=== PATIENT | male | born 1975 ===

== ENCOUNTER 2016-06-30 13:57 | Emergency (ER) | payer BC ==
[2016-06-30 14:14] VITALS: BP 141/83
--- NOTE | 2016-06-30 14:32 | UC ---
Skin Complaint HPI - HPI Summary HPI Summary: 40 y/o male c/o a swollen mass located on the left jaw. Patient states the area feels similar to a recent abscess diagnosed on his right neck two weeks ago. Patient nicked his chin shaving 2 days ago, area has became inflammed, has been increasing in his over the past two days. Area is tender to touch. - History of Current Complaint Chief Complaint: [facility] Time Seen by Provider: 06/30/16 14:18 Stated Complaint: CYST ON FACE Hx Obtained From: Patient Onset/Duration: Gradual Onset Onset Severity: Mild Current Severity: Moderate Location: Discrete Aggravating: Nothing Alleviating: Nothing Associated Signs & Symptoms: Positive: Negative. Negative: Difficulty Breathing , Fever, Chills - Allergy/Home Medications Allergies/Adverse Reactions: Allergies Allergy/AdvReac Type Severity Reaction Status Date / Time No Known Allergies Allergy Verified 06/30/16 14:14 Review of Systems Constitutional: Negative Skin: Other - Cyst located on the left lower jaw Eyes: Negative ENT: Negative Respiratory: Negative Cardiovascular: Negative Gastrointestinal: Negative Genitourinary: Negative Motor: Negative Neurovascular: Negative Musculoskeletal: Negative Neurological: Negative Psychological: Negative All Other Systems Reviewed And Are Negative: Yes PMH/Surg Hx/FS Hx/Imm Hx Previously Healthy: Yes Endocrine History Of: Denies: Diabetes, Thyroid Disease Cardiovascular History Of: Denies: Cardiac Disorders, Hypertension Respiratory History Of: Denies: COPD, Asthma GI/ History Of: Denies: Ulcer Neurological History Of: Denies: TIA, CVA, Dementia, Seizures, Migraine Psychological History Of: Denies: Anxiety, Depression, Bipolar Disorder, Schizophrenia, Post Traumatic Stress Disorder - Surgical History Surgical History: Yes Surgery Procedure, Year, and Place: wisdom teeth extraction - Family History Known Family History: Positive: None - Social History Occupation: Employed Full-time Alcohol Use: None Substance Use Type: None Smoking Status (MU): Never Smoked Tobacco Have You Smoked in the Last Year: No Physical Exam Triage Information Reviewed: Yes Appearance: Well-Appearing, No Pain Distress Vital Signs: Initial Vital Signs Temp 98.1 F 06/30/16 14:10 Pulse 94 06/30/16 14:10 Resp 18 06/30/16 14:10 BP 141/83 06/30/16 14:10 Pulse Ox 100 06/30/16 14:10 Vital Signs Reviewed: Yes Eye Exam: Normal Eyes: Positive: Conjunctiva Clear ENT Exam: Normal ENT: Positive: Normal ENT inspection, Hearing grossly normal, Pharynx normal, Pharyngeal erythema, TMs normal Dental Exam: Normal Neck exam: Normal Neck: Positive: Supple, Nontender, No Lymphadenopathy Respiratory Exam: Normal Respiratory: Positive: Chest non-tender, Lungs clear, Normal breath sounds, No respiratory distress, No accessory muscle use Cardiovascular Exam: Normal Cardiovascular: Positive: RRR, No Murmur, Pulses Normal Abdominal Exam: Normal Abdomen Description: Positive: Nontender, No Organomegaly, Soft Bowel Sounds: Positive: Present Musculoskeletal Exam: Normal Musculoskeletal: Positive: Strength Intact, ROM Intact Neurological Exam: Normal Neurological: Positive: Alert, Muscle Tone Normal Psychological Exam: Normal Skin Exam: Other - Abscess appearing cyst located on the left jaw Course/Dx - Diagnoses Provider Diagnoses: Encapsulated abscess left jaw. Folliculitis Procedures - Incision and Drainage Site: Left lower jaw Anesthesia: Lidocaine Instrument(s): Scalpel - Some bleeding, no pus return, patient tolerated well Discharge - Discharge Plan Condition: Stable Disposition: HOME Prescriptions: Cephalexin CAP* [Keflex 500 CAP*] 500 mg PO QID #28 cap Patient Education Materials: Abscess (ED) Referrals: [facility] [Outside] Additional Instructions: As discussed, apply a warm compress soak for 15-20 minutes at a times 3-5 x's or more per day. Take ABX as prescribed. Return to a medical facility if swelling or redness increases, red streaking is noticed coming from the area, significant fever over 101F with chills develops.
[2016-06-30] MEDS ORDERED: Lidocaine 2% PF* 5 ML VIAL ONE (14:42)
== END 2016-06-30 15:36 | disposition home or self-care (01) ==
LOC: UCEAST 13:57
DX: M27.2 Inflammatory conditions of jaws (principal); L73.9 Follicular disorder, unspecified; R03.0 Elevated blood-pressure reading, without diagnosis of hypertension
CPT/HCPCS: 99212; G0463